=== PATIENT | female | born 1965 | race Caucasian/White ===

== ENCOUNTER → 2016-10-30 | Outpatient (CLI) | payer OTHER ==
[~2016-10-30] MED LIST: ALPR1TAB2 PO; AMOX250C17 PO; ASCO-96 PO; CALC600T4 PO; CARI350T PO; CHOL20002 PO; CITA10TA8 PO; DIAZ10TA PO; DOCU-30 PO; DULO30CA2 PO; HYDR2TAB13 PO; HYOS0.126 PO; LACT1CAP40 PO; LANS30CA PO; LEVO175T5 PO; MAGN400C PO; METH750T87 PO; MULT-26 PO; NICO1PAT4 TD; OMEG500C3 PO; ONDA4TAB7 PO; PANT40TA3 PO; PRAV20TA2 PO; PROM25TA10 PO; TOPI100T24 PO; TRAM300T15 PO; TRAM50TA2 PO; VIT1CAPS10 PO; VITA100022 PO; VITA1TAB19 PO
== END | disposition home or self-care (01) ==
LOC: RAD 09:00
DX: K31.84 Gastroparesis (principal)
CPT/HCPCS: 78264; A9541

== ENCOUNTER → 2017-05-19 | Outpatient (CLI) | payer OTHER ==
[~2017-05-19] MED LIST changes: +BUPR1PAT7 TD; +DICL25CA4 PO; +DOCU-131 PO; -DOCU-30 PO; +ESTR42.53 VG; +FLUT9.9S NAS; +FLUT9.9S NS; -HYDR2TAB13 PO; +HYDR2TAB29 PO; -HYOS0.126 PO; +HYOS0.1282 PO; +LIDO700A30 TD; +LINA290C PO; +LORA10CA PO; +NICO-486 TD; -NICO1PAT4 TD; +ONDA8TAB9 PO; +PROM25VI5 PO; +TIZA4CAP PO; +ZOLE5INF IV
[2017-05-19 13:30] LABS: PATH.CAST-FLAG NOT PRESENT; SPERM-FLAG NOT PRESENT; SRC-FLAG NOT PRESENT; XTAL-FLAG NOT PRESENT; YLC-FLAG NOT PRESENT
== END | disposition home or self-care (01) ==
LOC: STAR 11:21
PROVIDERS: ATTEND Orthopaedic Surgery
DX: Z01.818 Encounter for other preprocedural examination (principal); M19.011 Primary osteoarthritis, right shoulder; Z79.899 Other long term (current) drug therapy
CPT/HCPCS: 81001; 87081; 87086